=== PATIENT | female | born 1990 | race Caucasian/White ===

== ENCOUNTER → 2016-12-22 | Outpatient (REF) | payer OTHER | LOC: M SFHCLERA 13:46 | PROVIDERS: ATTEND Nurse Practitioner Family | DX: R10.9 Unspecified abdominal pain (principal) ==

== ENCOUNTER → 2020-01-12 | Outpatient (CLI) | payer OTHER | LOC: M LABSMTC 13:54 | PROVIDERS: ATTEND Family Medicine | DX: Z11.59 Encounter for screening for other viral diseases (principal); Z20.828 Contact with and (suspected) exposure to other viral communicable diseases ==

== ENCOUNTER → 2020-09-30 | Outpatient (CLI) | payer SELFPAY | LOC: M LABSMTC 14:53 | PROVIDERS: ATTEND Pediatrics | DX: Z20.822 Contact with and (suspected) exposure to COVID-19 (principal) ==